=== PATIENT | female | born 1990 | race Asian ===

== ENCOUNTER 2017-05-25 05:44 | Emergency (ER) | payer OTHER ==
[2017-05-25 05:53] VITALS: BP 145/97; PULSE 84; TEMP 98.5; BMI 26.6
--- NOTE | 2017-05-25 06:31 | PDOC ---
History of Present Illness - General Chief Complaint: Hematuria Stated Complaint: BLOOD IN URINE THIS AM Time Seen by Provider: 05/25/17 06:30 History Source: Patient Exam Limitations: No Limitations - History of Present Illness Initial Comments: 05/25/17 06:32 This is a 26-year-old female who comes in complaining of waking up this morning with some blood in her urine and some frequency and dysuria. Patient had similar symptoms approximately a month ago and that was urinary tract infection. Otherwise been healthy denies any fevers or chills, denies any back pain or flank pain. PAST MEDICAL HISTORY: no significant history PAST SURGICAL HISTORY: no significant history FAMILY HISTORY: no pertinant history SOCIAL HISTORY: Pt lives with family and is employed. MEDICATIONS: reviewed ALLERGIES: As per nursing notes Review of Systems General: No fevers or chills, no weakness, no weight loss HEENT: No change in vision. No sore throat,. No ear pain CardioVascular: No chest pain or shortness of breath Respiratory:No cough, or wheezing. Gastrointestinal: no nausea, vomitting, diarrhea or constipation, No rectal bleeding Genitourinary: + Hematuria, frequency, dysuria Musculoskeletal: No joint or muscle pain or swelling Neurologic: No headache, vertigo, dizziness or loss of consciousness Psychiatric: nor depression Skin: No rashes or easy bruising Endocrine: no increased thirst or abnormal weight change Allergic: no skin or latex allergy All other systems reviewed and normal GENERAL: The patient is awake, alert, and fully oriented, in no acute distress. HEAD: Normal with no signs of trauma. EYES: Pupils equal, round and reactive to light, extraocular movements intact, sclera anicteric, conjunctiva clear. EXTREMITIES: Normal range of motion, no edema. BACK: There is no CVA or flank tenderness on palpation NEUROLOGICAL: Normal speech, normal gait. grossly intact PSYCH: Normal mood, normal affect. SKIN: Warm, Dry, normal turgor, no rashes or lesions noted. 05/25/17 06:48 Assessment and plan: This is a 26-year-old female with hematuria frequency and dysuria. Patient's urinalysis does show a urinary tract infection. Patient otherwise is not . Patient given Macrobid and Pyridium. Patient discharged will follow-up with her primary care doctor Past History - Past Medical History Allergies/Adverse Reactions: Allergies Allergy/AdvReac Type Severity Reaction Status Date / Time Penicillins Allergy Verified 05/25/17 05:48 Sulfa (Sulfonamide Allergy Verified 05/25/17 05:47 Antibiotics) Home Medications: Ambulatory Orders Nitrofurantoin Monohyd/M-Cryst [Macrobid -] 100 mg PO BID #14 capsule 05/25/17 Norgestimate-Ethinyl Estradiol [Ortho Tri-Cyclen Lo Tablet] 1 each PO DAILY Phenazopyridine HCl [Pyridium] 200 mg PO TID #6 tablet 05/25/17 COPD: No Other medical history: DENIES - Suicide/Smoking/Psychosocial Hx Smoking History: Never smoked Have you smoked in the past 12 months: No Information on smoking cessation initiated: No Hx Alcohol Use: Yes (OCCAS) Drug/Substance Use Hx: No Substance Use Type: None *Physical Exam - Vital Signs Last Vital Signs Temp Pulse Resp BP Pulse Ox 98.5 F 84 16 145/97 100 05/25/17 05:48 05/25/17 05:48 05/25/17 05:48 05/25/17 05:48 05/25/17 05:48 *DC/Admit/Observation/Transfer Diagnosis at time of Disposition: Urinary tract infection Qualifiers: Urinary tract infection type: acute cystitis Hematuria presence: with hematuria Qualified Code(s): N30.01 - Acute cystitis with hematuria - Discharge Dispostion Disposition: HOME Condition at time of disposition: Stable Admit: No - Prescriptions Prescriptions: Nitrofurantoin Monohyd/M-Cryst [Macrobid -] 100 mg PO BID #14 capsule Phenazopyridine HCl [Pyridium] 200 mg PO TID #6 tablet - Referrals - Patient Instructions Additional Instructions: For the urinary tract infection take Macrobid 1 tablet twice a day for 7 days. For the symptoms U can take Pyridium 1 tablet 3 times a day for 2 days it will cause your urine to turn a fluorescent orange color so do not be dismayed if you see your urine a fluorescent orange color Return to the emergency department immediately with ANY new, persistent or worsening symptoms. Continue any medications as previously prescribed by your physician. You should follow up with your primary doctor as soon as possible regarding today's emergency department visit. . Please make sure your doctor reviews the results of your emergency evaluation. Thank you for coming to the Emergency Department today for your care. It was a pleasure to see you today. Please note that your evaluation is INCOMPLETE until you follow-up with your doctor. - Post Discharge Activity
[2017-05-25 06:41] LABS: URINE APPEARANCE CLOUDY; URINE BILIRUBIN NEGATIVE (NEGATIVE); URINE BLOOD 3+ (NEGATIVE); URINE COLOR YELLOW; URINE GLUCOSE (UA) NEGATIVE (NEGATIVE); URINE KETONE NEGATIVE (NEGATIVE); URINE NITRITE NEGATIVE (NEGATIVE); URINE UROBILINOGEN NEGATIVE mg/dL (0.2-1.0)
[2017-05-25 06:42] LABS: URINE LEUK ESTERASE 2+ (NEGATIVE); URINE PROTEIN 2+ (NEGATIVE)
[2017-05-25] MEDS ORDERED: NITROFURANTOIN MACROCRYSTAL 50 MG CAPSULE (FP) PO SCH (06:45)
[2017-05-25] MEDS ORDERED: PHENAZOPYRIDINE HCL 100 MG TABLET (FP) PO ONE (06:46)
[2017-05-25] MEDS ORDERED: PHENAZOPYRIDINE HCL 100 MG TABLET (FP) ONE (06:48)
[2017-05-25] MEDS ORDERED: NITROFURANTOIN MACROCRYSTAL 50 MG CAPSULE (FP) ONE (06:48)
[2017-05-25 06:55] LABS: EPI CELLS MODERATE /HPF (FEW); URINE MUCUS FEW
--- NOTE | 2017-05-25 07:40 | PDOC ---
*Physical Exam - Vital Signs Last Vital Signs Temp Pulse Resp BP Pulse Ox 98.5 F 84 16 145/97 100 05/25/17 05:48 05/25/17 05:48 05/25/17 05:48 05/25/17 05:48 05/25/17 05:48 ED Treatment Course - ADDITIONAL ORDERS Additional order review: Laboratory Results 05/25/17 05/25/17 05:56 05:52 Urine Color Yellow Urine Appearance Cloudy Urine pH 5.0 Ur Specific [place] 1.024 Urine Protein 2+ H Urine Glucose (UA) Negative Urine Ketones Negative Urine Blood 3+ H Urine Nitrite Negative Urine Bilirubin Negative Urine Urobilinogen Negative Ur Leukocyte Esterase 2+ H Urine HCG, Qual Negative - Medications Given in the ED: ED Medications Discontinued Medications Generic Name Dose Route Start Last Admin Trade Name Freq PRN Reason Stop Dose Admin Nitrofurantoin Macrocrystals 100 mg 05/25/17 06:45 05/25/17 06:50 Macrodantin - PO 100 mg ONCE DIMITRIS Administration Phenazopyridine HCl 200 mg 05/25/17 06:46 05/25/17 06:50 Pyridium - PO 05/25/17 06:47 200 mg ONCE ONE Administration Medical Decision Making - Medical Decision Making 05/25/17 07:44 Pt needed work note certifying her visit in the ED, which was printed and faxed. *DC/Admit/Observation/Transfer Diagnosis at time of Disposition: Urinary tract infection Qualifiers: Urinary tract infection type: acute cystitis Hematuria presence: with hematuria Qualified Code(s): N30.01 - Acute cystitis with hematuria - Discharge Dispostion Disposition: HOME Condition at time of disposition: Stable - Prescriptions Prescriptions: Nitrofurantoin Monohyd/M-Cryst [Macrobid -] 100 mg PO BID #14 capsule Phenazopyridine HCl [Pyridium] 200 mg PO TID #6 tablet - Referrals - Patient Instructions Additional Instructions: For the urinary tract infection take Macrobid 1 tablet twice a day for 7 days. For the symptoms U can take Pyridium 1 tablet 3 times a day for 2 days it will cause your urine to turn a fluorescent orange color so do not be dismayed if you see your urine a fluorescent orange color Return to the emergency department immediately with ANY new, persistent or worsening symptoms. Continue any medications as previously prescribed by your physician. You should follow up with your primary doctor as soon as possible regarding today's emergency department visit. . Please make sure your doctor reviews the results of your emergency evaluation. Thank you for coming to the Emergency Department today for your care. It was a pleasure to see you today. Please note that your evaluation is INCOMPLETE until you follow-up with your doctor. - Post Discharge Activity Forms/Work/School Notes: Back to Work
== END 2017-05-25 06:56 | disposition home or self-care (01) ==
LOC: FER 05:44
DX: N30.01 Acute cystitis with hematuria (principal)
CPT/HCPCS: 81003; 81015; 84703; 87086; 99282-25

== ENCOUNTER 2018-01-31 07:15 | Emergency (ER) | payer OTHER ==
[2018-01-31 08:40] VITALS: TEMP 98.8; BMI 27.3
[2018-01-31] MEDS ORDERED: LIDOCAINE 5% TOPICAL PATCH TP ONE (08:57)
[2018-01-31] MEDS ORDERED: IBUPROFEN 600 MG TABLET (FP) PO ONE ×2 (08:58→09:37)
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
[2018-01-31] MEDS ORDERED: CYCLOBENZAPRINE HCL 10 MG TABLET (FP) ONE (09:36)
[2018-01-31] MEDS ORDERED: LIDOCAINE 5% TOPICAL PATCH ONE (09:37)
[2018-01-31 09:59] VITALS: BP 118/65; PULSE 71
[2018-01-31] MEDS ORDERED: CYCLOBENZAPRINE HCL 5 MG TABLET PO SCH (10:00)
[2018-01-31] MEDS ORDERED: LIDOCAINE PATCH REMOVAL MC SCH (22:00)
== END 2018-01-31 09:57 | disposition home or self-care (01) ==
LOC: JER 07:15
DX: S16.1XXA Strain of muscle, fascia and tendon at neck level, initial encounter (principal); S00.83XA Contusion of other part of head, initial encounter; V43.52XA Car driver injured in collision with other type car in traffic accident, initial encounter; Y92.414 Local residential or business street as the place of occurrence of the external cause; Y93.89 Activity, other specified; Y99.8 Other external cause status; Z88.0 Allergy status to penicillin; Z88.2 Allergy status to sulfonamides
CPT/HCPCS: 99282-25